=== PATIENT | female | born 1995 | race Caucasian/White ===

== ENCOUNTER 2019-06-15 10:13 | Emergency (ER) | payer SELFPAY ==
--- OUTSIDE RECORDS SUMMARY | 2019-06-15 10:22 | XMS REPORT | Continuity of Care Document ---
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 ETOH Use Rare Use Of Alcohol Recreational Drug Use Current Drug User Allergies, Adverse Reactions, Alerts Active Allergies Reaction Severity Comments Date Bee Sting 02/08/2019 Medications Active Medications SIG Qnty Indications Ordering Provider Date Trinessa Lo Unknown 0.18/0.215/0.25 mg-25 mcg Tablets Immunizations Description No Information Available Vital Signs Date Vital Result Comment 04/17/2019 1:48pm Weight 147.00 lb Height 61 inches 5'1" BMI (Body Mass Index) 27.8 kg/m2 BP Systolic 131 mmHg BP Diastolic 75 mmHg Heart Rate 70 /min O2 % BldC Oximetry 99 % Body Temperature 98.2 F Pain Level 0 02/09/2019 1:54pm Weight 147.00 lb Height 61 inches 5'1" BMI (Body Mass Index) 27.8 kg/m2 BP Systolic 119 mmHg BP Diastolic 78 mmHg Heart Rate 67 /min O2 % BldC Oximetry 99 % Body Temperature 97.5 F [place] Score 16 Neck Circumference in inches 13 Pain Level 0 Results Test Acquired Date Facility Test Result H/L Range Note Drug Screen 03/09/2019 [facility] Urine None Detected None 1 Urine Pain [address] [address] Screen [phone] Urine Oxycodone Screen None Detected None Detect Urine Fentanyl Screen None Detected None Detect Urine Methadone Screen None Detected None Detect Urine Buprenorphine Screen None Detected None Detect Urine Amphetamine Screen None Detected None Detect Urine Barbiturates Screen None Detected None Detect Urine Benzodiazepine Screen None Detected None Detect Urine Cannabinoids Screen None Detected None Detect Urine Cocaine Screen None Detected None Detect Urine Opiates Screen None Detected None Detect Urine Phencyclidine Screen None Detected None Detect 2 1 [id number] The specimen was tested at the listed cutoffs: Drug Class Test level (ng/mL) Hydrocodone 300 Oxycodone 100 Fentanyl 1 Methadone 150 Buprenorphine 5 Amphetamines 500 Barbiturates 200 Benzodiazepines 200 Cocaine 150 Cannabinoids 50 Opiates 300 PCP 25 Specimen was received without chain of custody. Results should be used for medical purposes only. Procedures Date Code Description Status 03/09/2019 91556 MSLT Sleep Study Completed 03/08/2019 10147 Sleep Staging 4Or More Para Completed Medical Devices Description No Information Available Encounters Type Date Location Provider Dx Diagnosis Office Visit 02/09/2019 Main Office Owen Donaldson M.D G47.19 Other hypersomnia 2:00p G47.419 Narcolepsy without cataplexy Assessments Date Code Description Provider 03/09/2019 G47.419 Narcolepsy without cataplexy Sleep Lab - Owen Donaldson MD 03/08/2019 G47.9 Sleep disorder, unspecified Sleep Lab - Owen Donaldson MD 02/09/2019 G47.19 Other hypersomnia Owen Donaldson M.D 02/09/2019 G47.419 Narcolepsy without cataplexy Owen Donaldson M.D Plan of Treatment No Information Available Functional Status Description No Information Available Mental Status Description No Information Available Referrals Description No Information Available
[2019-06-15 11:01] VITALS: BP 125/76
--- NOTE | 2019-06-15 11:30 | UC ---
FLU HPI - HPI Summary HPI Summary: Pt presents with c/o cough, fever, diarrhea X 1 this morning. Pt took tylenol this morning for fever. Pt works at a [employer] - History of Current Complaint Stated Complaint: COUGH/FEVER Time Seen by Provider: 06/15/19 10:35 Hx Obtained From: Patient Hx Last Menstrual Period: 05/24/19 ?: No Onset/Duration: Sudden Onset Severity Currently: None Severity Initially: Mild Pain Intensity: 2 Associated Signs & Symptoms: Positive: Fever, Diarrhea Related Hx: Possible Flu/Infectious Exposure - Risk Factors Influenza Risk Factors: Negative - Allergy/Home Medications Allergies/Adverse Reactions: Allergies Allergy/AdvReac Type Severity Reaction Status Date / Time bee venom protein (honey bee) Allergy Unknown local Verified 06/15/19 10:28 reaction Home Medications: Home Medications Acetaminophen TAB* [Tylenol TAB*] 650 mg PO Q4H PRN 06/15/19 [History Confirmed 06/15/19] Norgestimate-Ethinyl Estradiol [Zmh-Ea-Mamipjtz Tablet] 1 each PO DAILY [History Confirmed 06/15/19] PMH/Surg Hx/FS Hx/Imm Hx Previously Healthy: Yes - Surgical History Surgical History: Yes Surgery Procedure, Year, and Place: Cholycystectomy - Family History Known Family History: Positive: Cardiac Disease - Social History Occupation: Employed Full-time Lives: With Family Alcohol Use: Rare Substance Use Type: None Smoking Status (MU): Light Every Day Tobacco Smoker Type: eCigarettes Have You Smoked in the Last Year: Yes - Immunization History Vaccination Up to Date: Yes Review of Systems All Other Systems Reviewed And Are Negative: Yes Constitutional: Positive: Negative Skin: Positive: Negative Eyes: Positive: Negative ENT: Positive: Negative Respiratory: Positive: Cough Cardiovascular: Positive: Negative Gastrointestinal: Positive: Diarrhea Genitourinary: Positive: Negative Motor: Positive: Negative Neurovascular: Positive: Negative Musculoskeletal: Positive: Negative Neurological/Mental Status: Positive: Negative Psychological: Positive: Negative Is Patient Immunocompromised?: No Physical Exam Triage Information Reviewed: Yes Appearance: Well-Appearing Vital Signs: Initial Vital Signs Temp 98.6 F 06/15/19 10:30 Pulse 69 06/15/19 10:30 Resp 16 06/15/19 10:30 BP 125/76 06/15/19 10:30 Pulse Ox 100 06/15/19 10:30 Vital Signs Reviewed: Yes Eye Exam: Normal ENT Exam: Normal ENT: Positive: Hearing grossly normal Dental Exam: Normal Musculoskeletal Exam: Normal Neurological Exam: Normal Psychological Exam: Normal Skin Exam: Normal Flu Course/Dx - Differential Dx/Diagnosis Differential Diagnosis/HQI/PQRI: Influenza, Other - COVID 19 Provider Diagnosis: Viral syndrome, Fever, Diarrhea Discharge ED - Sign-Out/Discharge Documenting (check all that apply): Patient Departure All imaging exams completed and their final reports reviewed: No Studies - Discharge Plan Condition: Stable Disposition: HOME Patient Education Materials: Viral Syndrome (ED) Forms: *Work Release Referrals: No Primary Care Phys,NOPCP [Primary Care Provider] - If Needed Additional Instructions: Please remain at home with minimum to no contact with others. Please wash your hands frequently with soap and water for at least 20 seconds. Please wait to hear about your COVID results and do not return to work until you have been notified about your pending test results. - Billing Disposition and Condition Condition: STABLE Disposition: Home
[2019-06-15 11:44] LABS: Influenza A Molecular Negative (Negative); Influenza B Molecular Negative (Negative)
== END 2019-06-15 12:04 | disposition home or self-care (01) ==
LOC: UCCORT 10:13
DX: B34.9 Viral infection, unspecified (principal); R50.9 Fever, unspecified; R19.7 Diarrhea, unspecified; F17.290 Nicotine dependence, other tobacco product, uncomplicated; Z91.030 Bee allergy status
CPT/HCPCS: 99211; G0463; U0002